=== PATIENT | female | born 1955 | race Caucasian/White ===

== ENCOUNTER 2016-10-14 23:13 | Emergency (ER) | payer MEDICARE, OTHER ==
[~2016-10-14] VITALS: Ht 162.6 cm; Wt 59.1 kg
[2016-10-14] MEDS ORDERED: LISI-661 PO (23:30)
[2016-10-14] MEDS ORDERED: CETI-260 PO (23:30)
[2016-10-14] MEDS ORDERED: CALC-51 PO (23:30)
[2016-10-15] MEDS ORDERED: PROPARACAINE HCL 0.5% 15 ML OPHTHALMIC SOLUTION OU ONE (00:30)
[2016-10-15 02:43] VITALS: BP 136/82
== END 2016-10-15 02:45 | disposition home or self-care (01) ==
LOC: EMS 23:19
DX: H10.9 Unspecified conjunctivitis (principal); I10 Essential (primary) hypertension
CPT/HCPCS: 99283